=== PATIENT | female | born 1995 | race Caucasian/White ===

== ENCOUNTER 2022-11-20 15:59 | Emergency (ER) | payer MEDICAID, OTHER ==
[~2022-11-20] VITALS: Ht 175.3 cm; Wt 68.9 kg
[2022-11-20 16:06] VITALS: BP 124/73
--- NOTE | 2022-11-20 18:00 | NUR ---
CALLED TO BE SEEN BY MD, NO RESPONSE.
--- NOTE | 2022-11-20 20:00 | NUR ---
CALLED FOR ROOM, NO RESPONSE
--- NOTE | 2022-11-20 20:08 | NUR ---
PT NOT IN WR. CALLED MULTIPLE TIMES
== END 2022-11-20 20:10 | disposition left against medical advice (07) ==
LOC: ER 16:14
DX: Z53.21 Procedure and treatment not carried out due to patient leaving prior to being seen by health care provider (principal)